=== PATIENT | male | born 1960 ===

== ENCOUNTER → 2016-10-07 | Outpatient (REF) ==
--- NOTE | 2016-10-07 13:05 | REP ---
Clinical: Pain. Technique: Neutral and frog lateral views of the right hip. Findings: Examination demonstrates relatively normal age-related changes including subtle increase sclerosis to the acetabular roof with associated minimal joint space narrowing. No significant osteophytosis, contour abnormalities, periarticular calcifications or obvious swelling is appreciated. No acute fracture dislocation. Impression: Mild age-related degenerative changes suggested. Signed by Nelson Darby MD 10/07/2016 12:56 P
== END ==
LOC: M SMT 12:19
PROVIDERS: ATTEND Internal Medicine
DX: M16.11 Unilateral primary osteoarthritis, right hip (principal)